=== PATIENT | male | born 1990 | race Caucasian/White ===

== ENCOUNTER 2017-06-26 10:44 | Inpatient (IN) | payer MEDICAID, OTHER ==
[~2017-06-26] VITALS: Ht 170.2 cm; Wt 63.5 kg
[2017-06-26 10:55] VITALS: BP 108/68
--- NOTE | 2017-06-26 11:05 | NUR ---
er md villasenor by bedside examining pt
--- NOTE | 2017-06-26 11:05 | NUR ---
US BY BEDSIDE
--- NOTE | 2017-06-26 11:07 | NUR ---
26y bib self with presents to the er with right sided testicular with swelling, progressively getting worse; pt denies any penile discharge or recent trauma or injury; Pt also denies any fevers, chills, n/v/d, abdominal pain, or back pain. Pt is aox4, rr are even and unlabored. Pt positioned to comfort, bed down. nad. awaiting results of us. will continue to monitor.
--- NOTE | 2017-06-26 11:07 | NUR ---
Jeff drake in [facility] - 06/26/17 at 1135 by JULIAN romero glass
[2017-06-26] MEDS ORDERED: HYDROmorphone PFS 2 MG/ML SYR IM ONE (11:15)
[2017-06-26] MEDS ORDERED: ONDANSETRON 4 MG ODT PO ONE (11:15)
[2017-06-26] MEDS ORDERED: AZITHROMYCIN 250 MG TAB PO ONE (11:40)
[2017-06-26] MEDS ORDERED: cefTRIAXone 250 MG in LIDOCAINE 1% ***ER ONLY *** 0.9 ML IM ONE (11:40)
[2017-06-26] MEDS ORDERED: LIDOCAINE 1% IM SCH (12:06)
[2017-06-26] MEDS ORDERED: CEFTRIAXONE IM SCH (12:06)
[2017-06-26] MEDS ORDERED: cefTRIAXone 250 MG VIAL ONE (12:10)
[2017-06-26] MEDS ORDERED: LIDOCAINE 2% 1000 MG/50 ML VIAL INJ ONE (12:11)
[2017-06-26] MEDS ORDERED: HYDROcodone/APAP 5/325 MG 1 TAB TAB PO ONE (12:50)
--- NOTE | 2017-06-26 13:26 | NUR ---
IV FLUIDS STARTED, INFUSING WELL. PT SITTING UP IN CHAIR.
[2017-06-26] MEDS ORDERED: NACL 0.9% 1,000 ML IV ONE (13:55)
[2017-06-26] MEDS ORDERED: ONDANSETRON 4 MG/2 ML VIAL IVP PRN (14:05)
--- NOTE | 2017-06-26 15:24 | NUR ---
PT TO XRAY, GF ATBEDSIDE
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
--- NOTE | 2017-06-26 16:01 | NUR ---
Patient will be admitted to care of DR STRONG. Admited to . Will go to room. Belongings list completed. Report to .
[2017-06-26] MEDS: NACL 0.9% 1,000 ML IV SCH ×2 (16:35→22:02)
[2017-06-26 17:00] VITALS: BP 122/73
[2017-06-26] MEDS: HYDROmorphone PFS 2 MG/ML SYR IVP PRN ×3 (17:15→23:42)
--- NOTE | 2017-06-26 17:17 | NUR ---
RADIOLOGY IS HERE FOR ANOTHER ABD XRAY. PT IN PAIN. ASKED FOR PAIN MED. ADMINISTERED DILAUDID 1MG IVP. PT TOLERATED WELL. GIRLFRIEND AND FRIENDS AT BEDSIDE. WILL CONTINUE TO MONITOR PT.
--- NOTE | 2017-06-26 18:04 | NUR ---
DR. SALCEDO WAS HERE CONSULTING ON THE CASE. SAW PT. PER , DC NG TUBE ORDER. WILL AWAIT THE BOWEL SERIES OF XRAYS BEFORE DECIDING WHAT TO DO.
[2017-06-26] MEDS ORDERED: BISACODYL 10 MG SUPP RC SCH (18:20)
[2017-06-26 18:34] LABS: HEMOGLOBIN 15.3 g/dL (12.0-18.0); MEAN CORPUSCULAR HEMOGLOBIN 29 pg (27-31); MEAN CORPUSCULAR HGB CONC 33 g/dL (33-37); MEAN CORPUSCULAR VOLUME 89 fL (80-94); PLATELET COUNT (AUTO) 318 K/uL (140-450); RED BLOOD CELL COUNT(AUTO) 5.28 MIL/uL (4.20-6.10); RED CELL DISTRIBUTION WIDTH 11.7 % (11.6-13.7); WHITE BLOOD COUNT (AUTO) 18.1 K/uL (4.8-10.8)
[2017-06-26 18:40] LABS: APPEARANCE,URINE SL CLOUDY (CLEAR); BILIRUBIN,URINE NEGATIVE (NEGATIVE); BLOOD, URINE NEGATIVE (NEGATIVE); COLOR,URINE YELLOW (YELLOW); LEUKOCYTE ESTERASE ,URINE NEGATIVE (NEGATIVE); NITRITE, URINE POSITIVE (NEGATIVE); PH,URINE 8.5 (5.0-9.0); UGLUCOSE NEGATIVE (NEGATIVE)
[2017-06-26 18:46] LABS: BARBITURATE, URINE NEG. ng/ml (NEG <=200); BENZODIAZEPINE, URINE NEG. ng/mL (NEG <=200); CANNABINOID, URINE NEG. ng/mL (NEG <=50); COCAINE, URINE NEG. ng/mL (NEG <=300); OPIATE, URINE NEG. ng/mL (NEG <=2000); PHENCYCLIDINE SCREEN,URINE NEG. ng/mL (NEG <=25)
[2017-06-26 19:00] LABS: ALBUMIN 3.2 g/dL (3.4-5.0); ANION GAP 10.7 (8-16); CREATININE 0.8 mg/dL (0.7-1.3); POTASSIUM 3.7 mmol/L (3.5-5.1); TOTAL BILIRUBIN 0.4 mg/dL (0.0-1.0)
[2017-06-26 19:08] LABS: PROTHROMBIN TIME 11.1 secs (10.8-13.4)
--- NOTE | 2017-06-26 19:10 | NUR ---
ENDORSED PT TO THE COTTON BALER NURSE AT BEDSIDE FOR CONTINUITY OF CARE. PT IN STABLE CONDITION. ADMINISTERED THE SUPPOSITORY. PT TOLERATED WELL. FAMILY WITH PT.
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
[2017-06-26 19:16] LABS: CHOL/HDL RATIO 2.6 (1-4.5); FREE T4 (FREE THYROXINE) 0.91 ng/dL (0.76-1.46); MAGNESIUM 1.7 mg/dL (1.8-2.4); PHOSPHORUS 3.6 mg/dL (2.5-4.9); THYROID STIMULATING HORMONE 1.56 uIU/mL (0.34-3.74)
[2017-06-26 19:17] LABS: RBC,URINE 0-5 (RARE) /HPF (0-5); WBC,URINE 16-25 (MOD) /HPF (0-5)
[2017-06-26 19:52] LABS: LYMPHOCYTES % (MANUAL) 9 % (20-46); MONOCYTES % (MANUAL) 5 % (5-12)
[2017-06-26 19:53] VITALS: BP 125/73
--- NOTE | 2017-06-26 20:20 | NUR ---
SPOKE TO DR LAIRD ABOUT PT COMPLAINT THAT PAIN MEDICATION DOESN'T HELP MUCH. WILL INCREASE DOSE.
[2017-06-26] MEDS: DOCUSATE SODIUM 100 MG GELCAP PO SCH (21:49)
[2017-06-27] VITALS: BP 131/78
--- NOTE | 2017-06-27 | NUR ---
MEDICATED PT WITH DILAUDID FOR 9/10 ABDOMINAL PAIN, PT TOLERATED WELL. VITAL SIGNS WITHIN NORMAL LIMITS. PT IN STABLE CONDITION, NO SIGNS OF DISTRESS NOTED. BED IN LOW POSITION, CALL LIGHT WITHIN REACH. WILL CONTINUE TO MONITOR.
[2017-06-27 04:00] VITALS: BP 133/76
[2017-06-27] MEDS: HYDROmorphone PFS 2 MG/ML SYR IVP PRN ×5 (04:23→18:42)
[2017-06-27] MEDS: ACETAMINOPHEN 325 MG TAB PO PRN (04:24)
--- NOTE | 2017-06-27 04:24 | NUR ---
ADMINISTERED TYLENOL FOR FEVER AND DILAUDID FOR SEVERE ABDOMINAL PAIN 03/03. PT TOLERATED WELL. VITAL SIGNS WITHIN NORMAL LIMITS. PT IN STABLE CONDITION, NO SIGNS OF DISTRESS NOTED. BED IN LOW POSITION, CALL LIGHT WITHIN REACH. WILL CONTINUE TO MONITOR.
[2017-06-27] MEDS: NACL 0.9% 1,000 ML IV SCH ×2 (06:33→10:30)
--- NOTE | 2017-06-27 07:35 | NUR ---
ENDORSED PT TO DAY SHIFT NURSE FOR CONTINUITY OF CARE, PT IN STABLE CONDITION.
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
[2017-06-27 08:00] VITALS: BP 131/71
[2017-06-27] MEDS: DOCUSATE SODIUM 100 MG GELCAP PO SCH ×2 (08:03→22:01)
--- NOTE | 2017-06-27 08:03 | NUR ---
ADMINISTERED MORNING MEDICATION AND DILAUDID PRN FOR COMPLAINT OF PAIN 9/10 OF THE ABDOMEN AND GROIN AREA. NO SIGNS AND DISTRESS NOTED AT THIS TIME. GIRLFRIEND AT BEDSIDE. SAFETY PRECAUTIONS IN PLACE. WILL CONTINUE TO MONITOR PATIENT.
[2017-06-27 08:05] LABS: HEMATOCRIT 44.9 % (36-52); HEMOGLOBIN 15.5 g/dL (12.0-18.0); MEAN CORPUSCULAR HEMOGLOBIN 30 pg (27-31); MEAN CORPUSCULAR HGB CONC 35 g/dL (33-37); MEAN CORPUSCULAR VOLUME 87 fL (80-94); PLATELET COUNT (AUTO) 324 K/uL (140-450); RED BLOOD CELL COUNT(AUTO) 5.14 MIL/uL (4.20-6.10); RED CELL DISTRIBUTION WIDTH 11.6 % (11.6-13.7); WHITE BLOOD COUNT (AUTO) 19.1 K/uL (4.8-10.8)
[2017-06-27 08:27] LABS: ANION GAP 13.5 (8-16); CARBON DIOXIDE 24.8 mmol/L (21-32); CREATININE 0.8 mg/dL (0.7-1.3); POTASSIUM 4.3 mmol/L (3.5-5.1)
[2017-06-27 08:32] LABS: MAGNESIUM 1.8 mg/dL (1.8-2.4); PHOSPHORUS 3.2 mg/dL (2.5-4.9)
--- NOTE | 2017-06-27 08:49 | NUR ---
PATIENT HAS BEEN SCREENED AND CATEGORIZED MODERATE NUTRITION RISK. PATIENT WILL BE SEEN WITHIN 3-5 DAYS OF ADMISSION. 06/28/17-06/30/[address]
[2017-06-27 09:30] LABS: LYMPHOCYTES % (MANUAL) 9 % (20-46); MONOCYTES % (MANUAL) 2 % (5-12)
[2017-06-27] MEDS: LEVOFLOXACIN 500 MG/D5W PREMIX 100 ML IV SCH (10:42)
--- NOTE | 2017-06-27 11:00 | NUR ---
1ST DOSE OF IVPB LEVAQUIN ADMINISTERED. NO REACTIONS NOTED. NO SIGNS OF DISTRESS OR SOB. PATIENT IS SLEEPING. SAFETY PRECAUTIONS IN PLACE. WILL CONTINUE TO MONITOR PATIENT.
--- NOTE | 2017-06-27 11:44 | NUR ---
CHECKED ON PT. PT SLEEPING. NO SIGNS OF DISTRESS. LEVAQUIN STILL INFUSING. PT TOLERATING WELL. WILL CONTINUE TO MONITOR PT.
--- NOTE | 2017-06-27 12:20 | NUR ---
PT C/O PAIN 8/10 D/T ABDOMEN AND GROIN AREA. DILAUDID PRN GIVEN. PATIENT TOLERATED IT WELL. GIRLFRIEND AT BEDSIDE. SAFETY PRECAUTIONS IN PLACE, WILL CONTINUE TO MONITOR PATIENT.
--- NOTE | 2017-06-27 13:10 | NUR ---
DR. TRACY AND DR. SALCEDO IN TO SEE THE PATIENT. FULL LIQUID DIET ORDERED PER MD. PATIENT SITTING UP IN BED, NO SIGNS OF DISTRESS AT THIS TIME. SAFETY PRECAUTIONS IN PLACE. WILL CONTINUE TO MONITOR PATIENT.
--- NOTE | 2017-06-27 14:20 | NUR ---
PATIENT SITTING UP IN BED EATING HIS FULL LIQUID LUNCH TRAY. NO SIGNS OF DISTRESS OR SOB NOTED. SAFETY PRECAUTIONS IN PLACE, WILL CONTINUE TO MONITOR PATIENT.
[2017-06-27 16:00] VITALS: BP 131/65
[2017-06-27] MEDS: KETOROLAC 30 MG/ML VIAL IVP PRN (17:28)
[2017-06-27] MEDS ORDERED: FUROSEMIDE 20 MG/2 ML VIAL IVP SCH (17:30)
--- NOTE | 2017-06-27 17:30 | NUR ---
PATIENT AMBULATED TO RESTROOM, CAME BACK AND STATED THAT HIS TESTICLE WAS FURTHER ENLARGED. DR. TRACY AND DR. ACOSTA CAME AND ASSESSED, THEN ORDERED LASIX AND TORADOL IVP. PER MD ORDERS, MEDICATIONS WERE GIVEN. PATIENT TOLERATED THEM WELL. PATIENT SITTING IN BED TALKING TO FAMILY. NO SIGNS OF DISTRESS NOTED. SAFETY PRECAUTIONS IN PLACE. WILL CONTINUE TO MONITOR PATIENT.
--- NOTE | 2017-06-27 19:25 | NUR ---
GAVE REPORT TO CHARGE NURSE. PATIENT IN STABLE CONDITION, TALKING TO FRIENDS.
--- NOTE | 2017-06-27 20:08 | NUR ---
RECEIVED REPORT FROM CHARGE NURSE. SEEN PT. AWAKE AND SITTING UP IN BED WITH FRIENDS VISITING. GOOD AFFECT. DENIES PAIN AT THIS TIME. CALL LIGHT WITH IN REACH. NO SOB. CARE PLANS FOR THE NIGHT DISCUSSED WITH HIM.
[2017-06-28] VITALS (11 sets, daily range): BP systolic 100–130; BP diastolic 60–75
--- NOTE | 2017-06-28 00:10 | NUR ---
SLEEPING AT TH IS TIME. WAKES UP EASILY WHEN CALLED BY NAME. NO SOB. DENIES PAIN AT THIS TIME. CALL LIGHT WITH IN REACH AT ALL TIMES. AFEBRILE.
--- NOTE | 2017-06-28 00:33 | NUR ---
ENDORSED TO THE NEXT RN FOR CONTINUITY OF CARE. PT. SLEEPING AT THIS TIME. NO SOB. DENIES PAIN.
[2017-06-28] MEDS: HYDROmorphone PFS 2 MG/ML SYR IVP PRN ×4 (01:35→19:14)
--- NOTE | 2017-06-28 01:35 | NUR ---
AWAKE REQUESTED FOR PAIN IN THE ABDOMEN, MEDICATED WITH DILAUDID 2MG IV.
--- NOTE | 2017-06-28 04:00 | NUR ---
C/O H/A STATED WILL TAKE THE TYLENOL BUT WHEN ABOUT TO GIVE THE TYLENOL STATES WILL WAIT FOR THE DILAUDID.
--- NOTE | 2017-06-28 06:40 | NUR ---
PT SLEEPING COMFORTABLY, NO SIGNS OF DISTRESS.
--- NOTE | 2017-06-28 07:53 | NUR ---
RECEIVED REPORT FROM LARY DAVALOS AT BEDSIDE. PATIENT ASLEEP. INITIAL ASSESSMENT INITIATED. NOT IN ANY DISTRESS.
[2017-06-28] MEDS: DOCUSATE SODIUM 100 MG GELCAP PO SCH ×2 (08:39→20:58)
[2017-06-28] MEDS: LACTOBACILLUS RHAMNOSUS GG 1 EACH CAP PO SCH (08:39)
--- NOTE | 2017-06-28 08:41 | NUR ---
ROUNDS WITH MD AND DISCUSSED PLAN OF CARE. VERBALIZED UNDERSTANDING. WILL CONTINUE TO MONITOR.
[2017-06-28 09:06] LABS: CHLAMYDIA TRACHOMATIS AMP DNA Negative (Negative)
[2017-06-28 10:41] LABS: HEMATOCRIT 40.7 % (36-52); HEMOGLOBIN 13.9 g/dL (12.0-18.0); MEAN CORPUSCULAR HEMOGLOBIN 30 pg (27-31); MEAN CORPUSCULAR HGB CONC 34 g/dL (33-37); MEAN CORPUSCULAR VOLUME 89 fL (80-94); PLATELET COUNT (AUTO) 297 K/uL (140-450); RED BLOOD CELL COUNT(AUTO) 4.56 MIL/uL (4.20-6.10); RED CELL DISTRIBUTION WIDTH 11.9 % (11.6-13.7); WHITE BLOOD COUNT (AUTO) 18.3 K/uL (4.8-10.8)
[2017-06-28] MEDS: LEVOFLOXACIN 500 MG/D5W PREMIX 100 ML IV SCH (10:45)
[2017-06-28] MEDS ORDERED: SIMETHICONE 80 MG TAB.CHEW PO PRN (11:20)
[2017-06-28] MEDS ORDERED: SODIUM PHOSPHATE 118 ML ENEM RC SCH (11:22)
[2017-06-28 11:26] LABS: MAGNESIUM 1.9 mg/dL (1.8-2.4); PHOSPHORUS 2.3 mg/dL (2.5-4.9)
[2017-06-28] MEDS: ACETAMINOPHEN 325 MG TAB PO PRN (11:53)
--- NOTE | 2017-06-28 11:53 | NUR ---
WITH FEVER T-101.1, MEDICATED WITH TYLENOL ORDERED. COOLING MEASURES INITIATED. WILL CONTINUE TO MONITOR.
[2017-06-28 12:07] LABS: LYMPHOCYTES % (MANUAL) 8 % (20-46)
[2017-06-28 12:08] LABS: MONOCYTES % (MANUAL) 5 % (5-12)
--- NOTE | 2017-06-28 12:14 | NUR ---
US TECH AT BEDSIDE TO DO ULTRASOUND OF SCROTUM.
--- NOTE | 2017-06-28 13:54 | NUR ---
RECEIVED REPORT FROM ALIVIA, CHARGE NURSE. PT IS STABLE AT THIS TIME. WAITING FOR THE FLEET ENEMA. PT'S BEEN WITH U/S. FAMILY AT BEDSIDE. WILL CONTINUE TO MONITOR PT.
[2017-06-28 14:01] LABS: ANION GAP 12.8 (8-16); CREATININE 0.9 mg/dL (0.7-1.3); POTASSIUM 3.8 mmol/L (3.5-5.1)
--- NOTE | 2017-06-28 14:21 | NUR ---
PER DR. FALCON, HOLD THE ENEMA FOR NOW. MAY GO TO SURGERY W/ DR SKY OR ADEBAYO AT 1500. ORDERS FOR CONSENT. WILL GET IT SIGNED. Addendum: 06/28/17 at 1457 by Verna Miller RN WITNESSED MD EXPLAINING ALL THE BENEFITS AND CONSEQUENCES TO PT. MD ANSWERED ALL QUESTIONS.
--- NOTE | 2017-06-28 15:00 | NUR ---
MARYELLNE, OR NURSE HERE TO TAKE PT FOR SURGERY.
[2017-06-28] MEDS ORDERED: PROPOFOL 200 MG/20 ML VIAL IV ONE (16:00)
[2017-06-28] MEDS ORDERED: ONDANSETRON 4 MG/2 ML VIAL ONE (16:00)
[2017-06-28] MEDS ORDERED: SEVOFLURANE 250 ML BTL INH ONE (16:00)
[2017-06-28] MEDS ORDERED: KETOROLAC 60 MG/2 ML VIAL IM ONE (16:00)
[2017-06-28] MEDS ORDERED: DEXAMETHASONE 4 MG/ML VIAL ONE (16:00)
[2017-06-28] MEDS ORDERED: MIDAZOLAM 2 MG/2 ML VIAL ONE (16:30)
[2017-06-28] MEDS ORDERED: MORPHINE SULFATE 4 MG/ML SYR ONE ×2 (16:30→18:37)
[2017-06-28] MEDS ORDERED: fentaNYL 0.05 MG/ML VIAL ONE (16:30)
[2017-06-28] MEDS ORDERED: ceFAZolin 1,000 MG VIAL ONE (16:55)
[2017-06-28] MEDS ORDERED: MIDAZOLAM 2 MG/2 ML VIAL IV ONE (17:00)
[2017-06-28] MEDS ORDERED: MORPHINE SULFATE 2 MG/ML SYR IVP PRN ×2 (17:00)
[2017-06-28] MEDS ORDERED: MORPHINE SULFATE 4 MG/ML SYR IVP PRN ×4 (17:00)
[2017-06-28] MEDS ORDERED: METOCLOPRAMIDE 10 MG/2 ML INJ VIAL IVP PRN ×2 (17:00)
[2017-06-28] MEDS ORDERED: MIDAZOLAM 2 MG/2 ML VIAL IV SCH (17:11)
--- NOTE | 2017-06-28 19:07 | NUR ---
2 OR NURSES BROUGHT PT BACK TO THE FLOOR. PT AWAKE BUT DROWSY. PT IS IN STABLE CONDITION. V/S WITHIN NORMAL LIMITS. SCROTUM IS IN A SLING. PACKED WITH GAUZE. PER OR NURSE, ANDRIY DRAIN IS INSIDE. WILL START TO DRAIN. WILL START THE POST OP VITAL SIGNS. REQUESTS PAIN MEDS. WILL ADMINISTER.
--- NOTE | 2017-06-28 19:14 | NUR ---
ADMINISTERED DILAUDID. PT TOLERATED WELL. WILL CONTINUE TO MONITOR PT.
--- NOTE | 2017-06-28 20:20 | NUR ---
ENDORSED PT TO THE GAUGE INSPECTOR NURSE. PT IN STABLE CONDITION.
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
[2017-06-29] VITALS: BP 110/64
[2017-06-29 02:00] VITALS: BP 101/58
[2017-06-29] MEDS: HYDROmorphone PFS 2 MG/ML SYR IVP PRN ×4 (05:36→21:13)
[2017-06-29] MEDS: NACL 0.9% 1,000 ML IV SCH (06:24)
--- NOTE | 2017-06-29 07:18 | NUR ---
GAVE REPORT TO KM RN FOR CONTINUITY OF CARE, PT IN STABLE CONDITION
--- NOTE | 2017-06-29 07:22 | NUR ---
REPORT RECEIVED FROM ACCOUNTING MACHINE MECHANIC, PT SLEEPING QUIETLY IN NAD, RESP EVEN UNLABORED, SKIN WARM, DRY COLOR WNL, PT AROUSED EASILY, NO C/O PAIN OR DISCOMFORT, PLAN OF CARE REVIEWED, NO IMMEDIATE NEEDS IDENTIFIED, CALL GARDNER WITHIN REACH, SIDE RAILS UPX2, BED LOCKED IN LOW POSITION, WILL CONTINUE TO MONITOR.
[2017-06-29 07:51] LABS: HEMATOCRIT 41.5 % (36-52); HEMOGLOBIN 13.9 g/dL (12.0-18.0); MEAN CORPUSCULAR HEMOGLOBIN 30 pg (27-31); MEAN CORPUSCULAR HGB CONC 33 g/dL (33-37); MEAN CORPUSCULAR VOLUME 90 fL (80-94); PLATELET COUNT (AUTO) 341 K/uL (140-450); RED BLOOD CELL COUNT(AUTO) 4.64 MIL/uL (4.20-6.10); WHITE BLOOD COUNT (AUTO) 19.7 K/uL (4.8-10.8)
[2017-06-29 07:54] LABS: ANION GAP 10.4 (8-16); CREATININE 0.9 mg/dL (0.7-1.3); POTASSIUM 4.4 mmol/L (3.5-5.1)
[2017-06-29 08:00] VITALS: BP 107/65
[2017-06-29 08:19] LABS: LYMPHOCYTES % (MANUAL) 7 % (20-46); MONOCYTES % (MANUAL) 7 % (5-12)
[2017-06-29] MEDS: DOCUSATE SODIUM 100 MG GELCAP PO SCH ×2 (08:59→21:00)
[2017-06-29] MEDS: LACTOBACILLUS RHAMNOSUS GG 1 EACH CAP PO SCH (09:00)
[2017-06-29] MEDS: HYDROcodone/APAP 7.5/325 MG 1 TAB PO PRN ×2 (09:09→17:01)
[2017-06-29] MEDS: KETOROLAC 30 MG/ML VIAL IVP PRN (09:10)
--- NOTE | 2017-06-29 09:15 | NUR ---
AM MEDS GIVEN, PRN PAIN MED GIVEN, PT DENIES ANY OTHER IMMEDIATE NEEDS, WILL CONTINUE TO MONITOR.
[2017-06-29] MEDS ORDERED: SODIUM PHOS / POTASSIUM PHOS 1 PKT PDR PO SCH (09:30)
[2017-06-29] MEDS: LEVOFLOXACIN 500 MG/D5W PREMIX 100 ML IV SCH (10:52)
--- NOTE | 2017-06-29 12:05 | NUR ---
PT UP TO BATHROOM WITH MINIMAL ASSIST, STEADY GAIT, DRESSING CLEAN DRY INTACT, WILL CONTINUE TO MONITOR.
[2017-06-29 16:00] VITALS: BP 106/67
--- NOTE | 2017-06-29 17:45 | NUR ---
PT UP AMBULATING WELL WITHOUT PROBLEM WITH STEADY GAIT, SCROTAL DRESSING CLEAN DRY INTACT WITH SLING, AT BEDSIDE, WILL CONTINUE TO MONITOR.
--- NOTE | 2017-06-29 19:20 | NUR ---
REPORT GIVEN TO PAM GARCIA NURSEALEJANDRA, PT IN STABLE CONDITION.
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
--- NOTE | 2017-06-29 21:00 | NUR ---
PT C/O DRAIN MOVING OR COMING OUT, IN THE GAUZE. CAME TO ASSESS, DRAIN IS INTACT. SMALL AMOUNT OF SEROSANGOUNAS DRAINAGE NOTED ON GAUZE, REINFORCED WITH 4 MORE GAUZES, DRAIN MOVED TO PTS REQUEST.
[2017-06-30] VITALS: BP 100/48
[2017-06-30] MEDS: HYDROmorphone PFS 2 MG/ML SYR IVP PRN ×5 (01:46→23:15)
--- NOTE | 2017-06-30 07:20 | NUR ---
GAVE REPORT TO KM RN FOR CONTINUITY OF CARE, PT IN STABLE CONDITION. NO S/S OF DISTRESS NOTED
--- NOTE | 2017-06-30 07:22 | NUR ---
REPORT RECEIVED FROM CLIENT STRATEGIST, PT SLEEPING QUIETLY IN NAD, RESP EVEN UNLABORED ON ROOM AIR, SKIN WARM DRY COLOR WNL, PT DENIES PAIN OR DISCOMFORT AT THIS TIME, PLAN OF CARE REVIEWED, NO IMMEDIATE NEEDS IDENTIFIED, CALL GARDNER WITHIN REACH, SIDE RAILS UP, BED LOCKED IN LOW POSITION, WILL CONTINUE TO MONITOR.
--- NOTE | 2017-06-30 07:40 | NUR ---
PT C/O INCREASED PAIN AT TESTICULAR AREA AFTER GETTING UP TO BATHROOM , DR TRACY AT BEDSIDE, DRESSING WITH SMALL DRY DRAINAGE, CHANGED, PEN JORGE DRAIN INTACT, SLING IN PLACE FOR SUPPORT, TOWEL ROLL PLACED UNDER SCROTUM FOR SUPPORT, WILL MEDICATE PER ORDER.
[2017-06-30 07:47] LABS: HEMATOCRIT 36.8 % (36-52); HEMOGLOBIN 12.1 g/dL (12.0-18.0); MEAN CORPUSCULAR HEMOGLOBIN 30 pg (27-31); MEAN CORPUSCULAR HGB CONC 33 g/dL (33-37); MEAN CORPUSCULAR VOLUME 90 fL (80-94); PLATELET COUNT (AUTO) 322 K/uL (140-450); RED BLOOD CELL COUNT(AUTO) 4.09 MIL/uL (4.20-6.10); RED CELL DISTRIBUTION WIDTH 12.2 % (11.6-13.7); WHITE BLOOD COUNT (AUTO) 9.6 K/uL (4.8-10.8)
[2017-06-30] MEDS: KETOROLAC 30 MG/ML VIAL IVP PRN ×2 (07:47→15:55)
[2017-06-30 08:00] VITALS: BP 113/67
[2017-06-30] MEDS ORDERED: PIPER/TAZO 3.375GM/D5W PREMIX 50 ML IV SCH ×2 (08:00→12:00)
[2017-06-30 08:09] LABS: ANION GAP 8.6 (8-16); CARBON DIOXIDE 29.2 mmol/L (21-32); CREATININE 0.7 mg/dL (0.7-1.3); POTASSIUM 3.8 mmol/L (3.5-5.1)
[2017-06-30] MEDS: NACL 0.9% 1,000 ML IV SCH ×2 (08:13→22:25)
[2017-06-30 08:17] LABS: MAGNESIUM 1.8 mg/dL (1.8-2.4); PHOSPHORUS 2.8 mg/dL (2.5-4.9)
[2017-06-30 08:39] LABS: BASOPHILS % (MANUAL) 0 % (0-2); EOSINOPHILS % (MANUAL) 3 % (0-4); LYMPHOCYTES % (MANUAL) 16 % (20-46); MONOCYTES % (MANUAL) 8 % (5-12)
--- NOTE | 2017-06-30 09:30 | NUR ---
PT SLEEPING QUIELTY IN NAD, RESP EVNE UNLABORED, SKIN WARM DRY COLOR WNL, DRESSING CDI, WILL CONTINUE TO MONTIOR.
[2017-06-30] MEDS: DOCUSATE SODIUM 100 MG GELCAP PO SCH ×2 (09:35→21:00)
[2017-06-30] MEDS: LACTOBACILLUS RHAMNOSUS GG 1 EACH CAP PO SCH (09:36)
--- NOTE | 2017-06-30 12:05 | NUR ---
PT RESTING QUIETLY IN NAD, RESP EVEN UNLABORED, SITTING UP EATING LUNCH, DENIES NEED FOR PAIN MED, CALL GARDNER WITHIN REACH, WILL CONTINUE TO MONTIOR.
[2017-06-30] MEDS: PIPER/TAZO 3.375GM/D5W PREMIX 50 ML IV SCH ×2 (13:32→18:32)
--- NOTE | 2017-06-30 14:08 | NUR ---
PT SLEEPING QUIETLY IN NAD, NO IMMEDIATE NEEDS IDENTIFIED, WILL CONTINUE TO MONTIOR.
--- NOTE | 2017-06-30 15:19 | NUR ---
PT MOANING AND CRYING, STATES HE NEEDS TO GET UP TO BATHROOM, OFFERED URINAL BUT UNABLE TO VOID IN URINAL, ASSISTED TO BATHROOM, MEDICATED FOR PAIN AT THIS TIME, DRESSING CLEAN DRY INTACT, CALL GARDNER WITHIN REACH, WILL CONTINUE TO MONITOR.
[2017-06-30 16:00] VITALS: BP 118/70
[2017-06-30] MEDS: HYDROcodone/APAP 7.5/325 MG 1 TAB PO PRN (18:37)
--- NOTE | 2017-06-30 18:43 | NUR ---
MEDICATED WITH NORCO FOR PAIN, PT ASISTED WITH URINAL, SUPPORT STRAP ADJUSTED FOR BETTER SUPPORT OF SCROTUM, CALL GARDNER WITHIN REACH, SIDE RAILS UP, WILL CONTINUE TO MONIOTOR
--- NOTE | 2017-06-30 19:29 | NUR ---
REPORT GIVEN TO GROUND TRANSPORTATION OPERATOR NURSE, PT INSTABLE CONDITION.
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
[2017-07-01] VITALS: BP 117/73
[2017-07-01] MEDS: PIPER/TAZO 3.375GM/D5W PREMIX 50 ML IV SCH ×3 (00:12→12:55)
--- NOTE | 2017-07-01 00:30 | NUR ---
PT UP AND AMBULATING TO THE BATHROOM. ASSISTED PT, NO DISTRESS NOTED
--- NOTE | 2017-07-01 01:00 | NUR ---
PT REFUSED DRESSING CHANGE AT THIS TIME. PT STATED HE WILL NOTIFY ME IF HE CHANGES HIS MIND
[2017-07-01] MEDS: HYDROmorphone PFS 2 MG/ML SYR IVP PRN ×3 (03:22→13:00)
[2017-07-01] MEDS: HYDROcodone/APAP 7.5/325 MG 1 TAB PO PRN (06:14)
[2017-07-01 06:54] LABS: BASOPHILS # (AUTO) 0.1 K/uL (0.00-0.22); BASOPHILS % (AUTO) 1.5 % (0.0-2.0); EOSINOPHILS # (AUTO) 0.2 K/uL (0-0.4); EOSINOPHILS % (AUTO) 2.6 % (0.0-4.0); HEMATOCRIT 39.3 % (36-52); HEMOGLOBIN 13.1 g/dL (12.0-18.0); LYMPHOCYTES # (AUTO) 1.3 K/uL (2.0-11.5); LYMPHOCYTES % (AUTO) 15.2 % (20.5-51.1); MEAN CORPUSCULAR HEMOGLOBIN 30 pg (27-31); MEAN CORPUSCULAR HGB CONC 33 g/dL (33-37); MEAN CORPUSCULAR VOLUME 89 fL (80-94); MONOCYTES % (AUTO) 11.6 % (1.7-9.3); NEUTROPHILS % (AUTO) 69.1 % (42.2-75.2); PLATELET COUNT (AUTO) 396 K/uL (140-450); RED BLOOD CELL COUNT(AUTO) 4.41 MIL/uL (4.20-6.10); RED CELL DISTRIBUTION WIDTH 12.2 % (11.6-13.7); WHITE BLOOD COUNT (AUTO) 8.6 K/uL (4.8-10.8)
[2017-07-01 07:16] LABS: ANION GAP 11.6 (8-16); CARBON DIOXIDE 28.8 mmol/L (21-32); CREATININE 0.8 mg/dL (0.7-1.3); POTASSIUM 4.4 mmol/L (3.5-5.1)
[2017-07-01 07:24] LABS: MAGNESIUM 1.9 mg/dL (1.8-2.4)
--- NOTE | 2017-07-01 07:30 | NUR ---
RECEIVED PT ON BED AAOX4. NO SOB NOTED. NO C/O PAIN AT THIS TIME. IV TO RT AC PATENT AND INTACT. CHEST CLEAR. ABDOMEN SOFT. BOWEL SOUNDS PRESENT. RT SCROTAL DRAIN IN PLACE, WITH MINIMAL SEROSANGUINOUS DRAINAGE NOTED, DRESSING CHANGED, SCROTAL SUPPORT IN PLACE. INSTRUCTED PT TO CALL FOR ASSISTANCE, CALL LIGHT WITHIN REACH. PT VERBALIZED UNDERSTANDING.
--- NOTE | 2017-07-01 07:46 | NUR ---
REPORT GIVEN TO DAY NURSE FOR CONTINUITY OF CARE, PT IN STABLE CONDITION. NO S/S OF DISTRESS NOTED
[2017-07-01 08:00] VITALS: BP 125/80
[2017-07-01] MEDS: LACTOBACILLUS RHAMNOSUS GG 1 EACH CAP PO SCH (09:11)
[2017-07-01] MEDS: DOCUSATE SODIUM 100 MG GELCAP PO SCH (09:11)
--- NOTE | 2017-07-01 12:15 | NUR ---
PT EATING 80% OF BREAKFAST AND LUNCH. FOOD TOLERATED WELL.
[2017-07-01] MEDS ORDERED: MORPHINE SULFATE 4 MG/ML SYR IVP SCH (13:25)
[2017-07-01] MEDS ORDERED: KETOROLAC 30 MG/ML VIAL IVP PRN (13:30)
[2017-07-01] MEDS ORDERED: HYDROmorphone PFS 2 MG/ML SYR IVP PRN (13:30)
[2017-07-01] MEDS ORDERED: HYDROcodone/APAP 10/325 MG 1 TAB TAB PO PRN (13:40)
[2017-07-01] MEDS ORDERED: DOCU-299 PO (13:49)
[2017-07-01] MEDS ORDERED: ACET-2858 PO (13:49)
[2017-07-01] MEDS ORDERED: LEVO750T2 PO (13:49)
[2017-07-01] MEDS ORDERED: IBUP-2217 PO (13:49)
[2017-07-01] MEDS ORDERED: LACT1.4C PO (13:49)
--- NOTE | 2017-07-01 14:00 | NUR ---
ANDRIY DRAIN REMOVED BY DR. ACOSTA. PT TOLERATED PROCEDURE WELL.
--- NOTE | 2017-07-01 14:05 | NUR ---
WOUND DRESSING DONE. MINIMAL SEROSANGUINOUS FLUID NOTED.
[2017-07-01 16:00] VITALS: BP 98/59
--- NOTE | 2017-07-01 16:00 | NUR ---
DISCHARGE PHOTO TAKEN AND DOCUMENTED.
--- NOTE | 2017-07-01 16:30 | NUR ---
DISCHARGE INSTRUCTIONS AND PRESCRIPTIONS GIVEN TO PT WHICH VERBALIZED FULL UNDERSTANDING OF THE INSTRUCTIONS GIVEN AND THE NEED TO FOLLOW UP WITH UROLOGIST AND [facility] OUT PT. ARM BANDS AND IV REMOVED, CANNULA TIP INTACT.
--- NOTE | 2017-07-01 16:45 | NUR ---
PT WHEELED TO THE FRONT LOBBY IN STABLE CONDITION. NO COMPLAINTS MADE. DRESSING TO SCROTUM DRY AND INTACT, SCROTAL SUPPORT IN PLACE. PT IS D/C HOME WITH BROTHER IN [place].
== END 2017-07-01 16:45 | disposition home or self-care (01) | DRG 483 ==
LOC: MED 10:44 → MTU 14:02
PROVIDERS: ADMIT Family Medicine Sports Medicine; ATTEND Family Medicine Sports Medicine
PROC: 0VB90ZX Excision of Right Testis, Open Approach, Diagnostic (ICD-10-PCS; principal; 2017-06-28 15:30)
DX: N44.00 Torsion of testis, unspecified (principal); N17.0 Acute kidney failure with tubular necrosis; E44.0 Moderate protein-calorie malnutrition; N43.3 Hydrocele, unspecified; K59.00 Constipation, unspecified; F15.10 Other stimulant abuse, uncomplicated; N45.3 Epididymo-orchitis; N39.0 Urinary tract infection, site not specified; F17.210 Nicotine dependence, cigarettes, uncomplicated; E83.39 Other disorders of phosphorus metabolism; I99.8 Other disorder of circulatory system; Z68.21 Body mass index [BMI] 21.0-21.9, adult
CPT/HCPCS: 36415; 71045; 72170; 74250; 76870; 80048; 80053; 80305; 81001; 83036; 83735; 83880; 84100; 84439; 84443; 84484; 85025; 85610; 85730; 87070; 87081; 87086; 87186; 87491; 93005; 96360; 96372; 99285; J0690; J0696; J1100; J1170; J1885; J1940; J1956; J2001; J2250; J2270; J2405; J2543; J2704; J3010; J7030; Q0092; S0119

== ENCOUNTER 2024-01-18 04:39 | Emergency (ER) | payer OTHER, MEDICAID ==
[~2024-01-18] VITALS: Ht 170.2 cm; Wt 76.2 kg
[~2024-01-18 04:39] MED LIST: DOCU-299 PO; HYDR-5092 PO; IBUP-2217 PO; LACT1.4C PO; LEVO750T2 PO
[2024-01-18 04:41] VITALS: BP 136/99; PULSE 116; RESP 20; TEMP 98; O2SAT 98
[2024-01-18 04:56] VITALS: BP 136/99; PULSE 116; RESP 20; TEMP 98; O2SAT 98
== END 2024-01-18 05:45 ==
LOC: MED 04:39
DX: S09.90XA Unspecified injury of head, initial encounter (principal); Z79.1 Long term (current) use of non-steroidal anti-inflammatories (NSAID); Z79.899 Other long term (current) drug therapy; V09.9XXA Pedestrian injured in unspecified transport accident, initial encounter; Y93.89 Activity, other specified; Y92.89 Other specified places as the place of occurrence of the external cause; Y99.8 Other external cause status
CPT/HCPCS: 99283